=== PATIENT | female | born 1970 | race Caucasian/White ===

== ENCOUNTER → 2021-06-26 | Outpatient (CLI) | payer BC ==
--- NOTE | 2021-06-26 13:50 | MR ---
EXAMINATION TYPE: MR lumbar spine wo con DATE OF EXAM: 06/26/2021 1:41 PM COMPARISON: NONE HISTORY: Low back pain Multiplanar, MultiSpin echo imaging of the lumbar spine was performed. L1-L2: Normal disc appearance without desiccation. No herniation, protrusion or disc bulging. No ca nal stenosis is present. Foramina are patent bilaterally. L2-L3: Normal disc appearance without desiccation. No herniation, protrusion or disc bulging. No ca nal stenosis is present. Foramina are patent bilaterally. L3-L4: Normal disc appearance without desiccation. No herniation, protrusion or disc bulging. No ca nal stenosis is present. Foramina are patent bilaterally. L4-L5: Normal disc appearance without desiccation. There is mild posterior disc bulge. Mild effacemen t ventral thecal sac. No evidence of herniation or protrusion. No canal stenosis is present. Foramin a are patent bilaterally. L5-S1: Normal disc appearance without desiccation. No herniation, protrusion or disc bulging. No ca nal stenosis is present. Foramina are patent bilaterally. Lumbar segments are intact. No paraspinal masses are identified. Conus medullaris has a normal appe arance. IMPRESSION: 1. Mild degenerative disc bulging at L4-5.
== END ==
LOC: RADMRIMAIN 12:49
PROVIDERS: ATTEND Physical Medicine & Rehabilitation
DX: M51.36 Other intervertebral disc degeneration, lumbar region (principal)
CPT/HCPCS: 72148

== ENCOUNTER → 2021-12-19 | Outpatient (CLI) | payer BC ==
--- NOTE | 2021-12-20 07:49 | MM ---
Reason for Exam: Screening (asymptomatic). Last mammogram was performed 5 year(s) and 7 month(s) ago. Patient History: Menarche at age 13. Patient has no children. Left ovary removed at age 30. Right ovary removed at age 30. Hysterectomy at age 30. Postmenopausal. Estrogen for 10 years from age 30 until age 40. Sister had breast cancer, age 42. Risk Values: Nicole 5 year model risk: 2.0%. NCI Lifetime model risk: 18.6%. Prior Study Comparison: 04/23/2015 Bilateral Screening Mammogram, [facility]. 05/09/2015 Left Diagnostic Mammogram, [facility]. 05/12/2016 Bilateral Screening Mammogram, [facility]. Tissue Density: The breast tissue is extremely dense which could obscure a lesion on mammography. Findings: Analyzed By CAD. New partially obscured nodularity seen best on the CC view outer aspect of the right breast zone C. Additional views are recommended. Overall Assessment: Incomplete: need additional imaging evaluation, BI-RAD 0 Management: Diagnostic Mammogram of the right breast. A clinical breast exam by your physician is recommended on an annual basis and results should be correlated with mammographic findings. Electronically signed and approved by: Shree Benavides M.D. Radiologis
== END | disposition home or self-care (01) ==
LOC: RADMAMWWP 07:57
PROVIDERS: ATTEND Family Medicine
DX: Z12.31 Encounter for screening mammogram for malignant neoplasm of breast (principal)
CPT/HCPCS: 77067

== ENCOUNTER → 2021-12-19 | Outpatient (CLI) | payer BC ==
--- NOTE | 2021-12-19 23:30 | CT ---
EXAMINATION TYPE: CT chest w con DATE OF EXAM: 12/19/2021 COMPARISON: NONE HISTORY: abnormal cxr, weight loss, cough. CT DLP: 322 mGycm. Automated Exposure Control for Dose Reduction was Utilized. TECHNIQUE: CT scan of the thorax is performed following with IV Contrast, patient injected with 70cc mL of Isovue 300. FINDINGS: LUNGS: Mild underlying emphysematous change. Mild left basilar linear scarring and/or atelectasis. No suspicious focal consolidation. No concerning greater than 5 mm pulmonary nodules or masses. No pleu ral effusion or pneumothorax seen bilaterally. MEDIASTINUM: There are no greater than 1 cm hilar or mediastinal lymph nodes. No cardiomegaly or pe ricardial effusion is seen. Coronary artery calcification is present which is noted marked with unde rlying coronary artery disease. OTHER: Slight scoliotic curvature in the upper thoracic spine. IMPRESSION: Mild emphysematous change without suspicious acute pulmonary process. No suspicious pulmo nary masses or thoracic adenopathy.
== END | disposition home or self-care (01) ==
LOC: RADCTMAIN 17:03
PROVIDERS: ATTEND Family Medicine
DX: R63.4 Abnormal weight loss (principal); R05.9 Cough, unspecified; J44.9 Chronic obstructive pulmonary disease, unspecified
CPT/HCPCS: 71260; Q9967

== ENCOUNTER → 2021-12-31 | Outpatient (CLI) | payer BC ==
--- NOTE | 2021-12-31 14:54 | MM ---
Reason for Exam: Additional evaluation requested from abnormal screening. Last screening mammogram was performed less than 1 month ago. Patient History: Menarche at age 13. Patient has no children. Left ovary removed at age 30. Right ovary removed at age 30. Hysterectomy at age 30. Postmenopausal. Estrogen for 10 years from age 30 until age 40. Sister had breast cancer, age 42. Risk Values: Nicole 5 year model risk: 2.0%. NCI Lifetime model risk: 18.6%. Prior Study Comparison: 05/09/2015 Left Diagnostic Mammogram, [facility]. 05/12/2016 Bilateral Screening Mammogram, [facility]. 12/19/2021 Bilateral MG screening mammo w CAD, [facility]. Tissue Density: Right: The breast tissue is heterogeneously dense. This may lower the sensitivity of mammography. Findings: Analyzed By CAD. Mammogram Questioned areas of asymmetric densities becomes less defined on additional views. Given the dense breast tissues, further ultrasound evaluation is recommended. Technique: Method: Whole Breast Handheld. Patient Position: Supine. Findings: The whole breast of the right breast was scanned. scanned through entire right breast, no abnormality seen by ultrasound Whole right breast ultrasound is performed including scanning of the subareolar region and axilla. Dense tissues are present throughout; no solid or cystic lesion. No axillary lymphadenopathy. Overall Assessment: Probably benign, BI-RAD 3 Assessment: MG work up mamm w CAD RT - Right: Incomplete: need additional imaging evaluation, BI-RAD 0. US breast workup RT - Right: Probably benign, BI-RAD 3. Management: Diagnostic Mammogram of the right breast in 6 months. 1. Six-month follow-up diagnostic right breast mammogram. 2. Patient should continue monthly self breast exams. A clinical breast exam by your physician is recommended on an annual basis. 3. This exam should not preclude additional follow-up of suspicious palpable abnormalities. Electronically signed and approved by: Mello Spivey M.D. Radiologist
== END | disposition home or self-care (01) ==
LOC: RADMAMWWP 13:31
PROVIDERS: ATTEND Family Medicine
DX: R92.8 Other abnormal and inconclusive findings on diagnostic imaging of breast (principal)
CPT/HCPCS: 77065

== ENCOUNTER → 2022-06-25 | Outpatient (CLI) | payer BC ==
--- NOTE | 2022-06-25 13:23 | MM ---
Reason for Exam: Follow-up at short interval from prior study. Last screening mammogram was performed 6 month(s) ago. Patient History: Menarche at age 13. Patient has no children. Left ovary removed at age 30. Right ovary removed at age 30. Hysterectomy at age 30. Postmenopausal. Estrogen for 10 years from age 30 until age 40. Sister had breast cancer, age 42. Risk Values: Nicole 5 year model risk: 2.0%. NCI Lifetime model risk: 18.6%. Prior Study Comparison: 05/12/2016 Bilateral Screening Mammogram, [facility]. 12/19/2021 Bilateral MG screening mammo w CAD, [facility]. 12/31/2021 Right MG work up mamm w CAD RT, [facility]. Tissue Density: Right: The breast tissue is heterogeneously dense. This may lower the sensitivity of mammography. Findings: Analyzed By CAD. No suspicious masses, calcifications or distortions. Overall Assessment: Negative, BI-RAD 1 Management: Screening Mammogram of both breasts in 6 months. Recommend routine annual screening. A clinical breast exam by your physician is recommended on an annual basis and results should be correlated with mammographic findings. This exam should not preclude additional follow-up of suspicious palpable abnormalities. Results were given to the patient verbally at the time of exam. Electronically signed and approved by: Stan Bailey DO
== END | disposition home or self-care (01) ==
LOC: RADMAMWWP 12:49
PROVIDERS: ATTEND Family Medicine
DX: R92.8 Other abnormal and inconclusive findings on diagnostic imaging of breast (principal); Z78.0 Asymptomatic menopausal state; Z80.3 Family history of malignant neoplasm of breast
CPT/HCPCS: 77061; 77065

== ENCOUNTER → 2024-05-02 | Outpatient (CLI) | payer BC ==
--- NOTE | 2024-05-02 14:48 | CTL ---
EXAMINATION TYPE: CT Low Dose Lung DATE OF EXAM ORDERED: 05/02/2024 COMPARISON: 12/19/2021 HISTORY: . Low Dose CT Lung Screening CT DLP: 81.[address] CTDI: 1.7 mGy IV CONTRAST USED: None. SCREENING VISIT: 2 COMPARISON: None. TECHNIQUE: Low dose computed tomography scan was performed through the chest at 1 millimeter thick se ctions and reconstructed images in the coronal plane at [address] DIAGNOSTIC QUALITY: Satisfactory FINDINGS: LUNG NODULES: Not presentLeft lung: no nodules identified.Right lung: no nodules identified. LUNGS: COPD: Severity: Mild emphysematous changes Fibrosis: Severity:None Lymph nodes: None Other findings: Basilar parenchymal scarring or linear atelectasis. RIGHT PLEURAL SPACE: Effusion: None Calcification: None Thickening: None Pneumothorax: None LEFT PLEURAL SPACE: Effusion: None Calcification: None Thickening: None Pneumothorax: None HEART: Heart Size: Mildly enlarged Coronary calcification: Mild Pericardial effusion: None OTHER FINDINGS: Upper abdomen: No significant abnormality Bony thorax: Degenerative changes Supraclavicular region: No significant abnormalityOther: No significant abnormalityI IMPRESSION: Mild emphysematous changes are clinically significant pulmonary nodularity. FOLLOW UP CT CHEST RECOMMENDATION: Follow-up screening in one year CT LUNG RAD: LUNG RAD CATEGORY 1 negative [facility], , 05/02/2024 2:46 PM
--- NOTE | 2024-05-08 17:30 | MM ---
Reason for Exam: Screening (asymptomatic). Last mammogram was performed 2 year(s) and 5 month(s) ago. Patient History: Menarche at age 13. Patient has no children. Left ovary removed at age 30. Right ovary removed at age 30. Hysterectomy at age 30. Postmenopausal. Estrogen for 10 years from age 30 until age 40. Sister had breast cancer, age 42. Risk Values: Nicole 5 year model risk: 2.2%. NCI Lifetime model risk: 18.0%. Prior Study Comparison: 12/19/2021 Bilateral MG screening mammo w CAD, [facility]. 12/31/2021 Right MG work up mamm w CAD RT, [facility]. 06/25/2022 Right MG 3D diag mammo w/cad RT, [facility]. Tissue Density: The breasts are extremely dense, which lowers the sensitivity of mammography. Findings: Analyzed By CAD. The pattern is symmetrical. There is some stable calcifications within the mid right breast No suspicious groups of microcalcifications, spiculated or lobular masses, architectural distortion or other secondary signs of malignancy are mammographically apparent. Overall Assessment: Benign, BI-RAD 2 Management: Screening Mammogram of both breasts in 1 year. A negative mammogram report should not preclude additional follow up of suspicious palpable abnormalities. Patient should continue monthly self breast exam. A clinical breast exam by your physician is recommended on an annual basis and results should be correlated with mammographic findings. Note on Nicole scores and lifetime risk: 1. A Nicole score greater than 3% is considered moderate risk. If this is the case, consider specialist referral to assess eligibility for a risk reducing agent. 2. If overall lifetime risk for the development of breast cancer is 20% or higher, the patient may qualify for future screening with alternating mammogram and breast MRI. [facility], , 05/08/2024 5:27 PM. Electronically signed and approved by: Tay Turner D.O. Radiologis
== END | disposition home or self-care (01) ==
LOC: RADCTMAIN 07:03
PROVIDERS: ATTEND Family Medicine
DX: Z12.31 Encounter for screening mammogram for malignant neoplasm of breast (principal); Z12.2 Encounter for screening for malignant neoplasm of respiratory organs; Z00.00 Encounter for general adult medical examination without abnormal findings; J43.9 Emphysema, unspecified; F17.210 Nicotine dependence, cigarettes, uncomplicated; R91.8 Other nonspecific abnormal finding of lung field; R92.343 Mammographic extreme density, bilateral breasts; Z90.722 Acquired absence of ovaries, bilateral; Z78.0 Asymptomatic menopausal state; Z80.3 Family history of malignant neoplasm of breast
CPT/HCPCS: 71271; 77063; 77067

== ENCOUNTER → 2024-11-14 | Outpatient (CLI) | payer BC ==
--- NOTE | 2024-11-14 11:10 | US ---
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 Pt states thyroid levels are going up and down TECHNIQUE: Grayscale and color Doppler imaging of the thyroid gland. FINDINGS: GLAND SIZE: Right Lobe: 2.0 x 0.7 x 0.7 cm Overall Parenchyma: heterogeneous Left Lobe: 2.3 x 0.7 x 0.7 cm Overall Parenchyma: heterogeneous Isthmus Thickness: 0.12 cm NODULES RIGHT: # of nodules measured on right: 0 LEFT: # of nodules measured on left: 0 ISTHMUS: # of nodules measured in the isthmus: 0 Bilateral neck scanned, no evidence of lymphadenopathy. IMPRESSION: Heterogeneous and small thyroid gland which would suggest chronic hypothyroidism likely as a sequela of patient's previous radioactive iodine therapy. No suspicious nodules. [facility], , 11/14/2024 11:07 AM
== END | disposition home or self-care (01) ==
LOC: RADUSWWP 10:35
PROVIDERS: ATTEND Family Medicine
DX: E05.00 Thyrotoxicosis with diffuse goiter without thyrotoxic crisis or storm (principal); E07.89 Other specified disorders of thyroid; Z92.3 Personal history of irradiation
CPT/HCPCS: 76536

== ENCOUNTER → 2024-12-27 | Outpatient (CLI) | payer BC ==
--- NOTE | 2024-12-27 11:52 | XR ---
EXAMINATION TYPE: XR chest 2V DATE OF EXAM: 12/27/2024 10:48 AM COMPARISON: CT low-dose lung 05/02/2024, CT chest 12/19/2021 TECHNIQUE: XR chest 2V Frontal and lateral views of the chest. CLINICAL INDICATION:Female, 54 years old with history of F17.200, J44.1; FINDINGS: Lungs/Pleura: There is no evidence of pleural effusion, focal consolidation, or pneumothorax. Hyperi nflation. Pulmonary vascularity: Unremarkable. Heart/mediastinum: Cardiomediastinal silhouette is unremarkable. Musculoskeletal: No acute osseous pathology. IMPRESSION: Hyperinflation which could be seen with bronchiolitis versus COPD or asthma. No focal consolidation. Correlate clinically. [facility], , 12/27/2024 11:50 AM
== END | disposition home or self-care (01) ==
LOC: RADXRMAIN 10:27
PROVIDERS: ATTEND Family Medicine
DX: J44.1 Chronic obstructive pulmonary disease with (acute) exacerbation (principal); F17.200 Nicotine dependence, unspecified, uncomplicated
CPT/HCPCS: 71046